=== PATIENT | female | born 1985 | race Caucasian/White ===

== ENCOUNTER → 2016-11-19 | Outpatient (CLI) | payer OTHER ==
[~2016-11-19] MED LIST: MOTRIN 600600 MG/TAB PO; PERCOCET 325 MG1 TA2 PO; PRENATAL1 TA2
== END ==
LOC: COL.RAD 10:05
DX: M54.2 Cervicalgia (principal)

== ENCOUNTER 2017-02-16 07:30 | Outpatient (RCR) | payer OTHER | END 2017-02-18 14:17 | disposition home or self-care (01) | LOC: WSPT 07:30 | DX: M54.2 Cervicalgia (principal); M54.10 Radiculopathy, site unspecified | CPT/HCPCS: G8981-GP; G8982-GP ==

== ENCOUNTER 2017-03-18 19:01 | Emergency (ER) | payer OTHER ==
[~2017-03-18] VITALS: Ht 170.2 cm; Wt 72.7 kg
[2017-03-18 19:10] VITALS: BP 137/86; TEMP 98.6
[2017-03-18 19:50] LABS: INFLUENZA A NEGATIVE; INFLUENZA B NEGATIVE
[2017-03-18 20:08] VITALS: PULSE 78
== END 2017-03-18 20:08 | disposition home or self-care (01) ==
LOC: COL.ER 19:01
PROVIDERS: Physician Assistant
DX: J11.1 Influenza due to unidentified influenza virus with other respiratory manifestations (principal)

== ENCOUNTER 2019-02-19 00:01 | Emergency (ER) | payer OTHER ==
[~2019-02-19] VITALS: Ht 170.2 cm; Wt 68.2 kg
[2019-02-19 00:50] LABS: BASO % 0.3 % (0.0-2.0); EOS % 0.3 % (0-4.0); GRAN # 5.7 (1.4-6.5); GRAN % 88.6 % (42.2-75.2); HEMATOCRIT 38.1 % (37.0-47.0); LYMPH # 0.4 (1.2-3.4); LYMPH % 5.7 % (20.0-51.0); MEAN CELL VOLUME 92 fl (80.0-100.0); MEAN CORPUSCULAR HEMOGLOBIN 31 pg (27.0-31.0); MEAN CORPUSCULAR HGB CONC 34 g/dl (33.0-37.0); MEAN PLATELET VOLUME 8.9 fl (7.4-10.4); MONO # 0.2 (0.1-0.6); MONO % 3.6 % (1.7-9.3); PLATELET COUNT 201 K/mm3 (130-400); RED BLOOD COUNT 4.16 M/mm3 (4.10-5.30); REDCELL DISTRIBUTION WIDTH-CV 12.1 % (11.5-14.5)
[2019-02-19 00:59] LABS: ALBUMIN 4.6 gm/dL (3.5-5.0); BILIRUBIN,TOTAL 0.4 mg/dL (0.0-1.0); CREATININE, serum 0.64 (0.52-1.25); TOTAL PROTEIN 7.9 gm/dL (6.4-8.2)
[2019-02-19 01:05] LABS: BAND 6 % (0-10); LYMPHOCYTE 6 % (20.0-51.0); NEUTROPHILS 86 % (42.0-75.2)
[2019-02-19 01:06] LABS: PLATELET ESTIMATE NORMAL (NORMAL)
[2019-02-19 01:40] LABS: COLLECTION METHOD CLEAN CATCH
[2019-02-19 01:45] LABS: MUCOUS Present /lpf; PH 5 (5-8); SQUAMOUS EPITHELIAL 0-2 /hpf; URINE APPEARANCE Clear; URINE BACTERIA None Seen /hpf; URINE BILIRUBIN Negative (NEGATIVE); URINE BLOOD 3+ (NEGATIVE); URINE COLOR Yellow; URINE GLUCOSE Negative (NEGATIVE); URINE KETONE Negative (NEGATIVE); URINE LEUKOCYTE ESTERASE Negative (NEGATIVE); URINE NITRATE Negative (NEGATIVE); URINE PROTEIN(semi-quant) Negative (NEGATIVE); URINE UROBILINOGEN Negative (NEGATIVE)
[2019-02-19 02:49] VITALS: BP 98/65; PULSE 99; TEMP 97.9
== END 2019-02-19 02:59 | disposition home or self-care (01) ==
LOC: COL.ER 00:01
PROVIDERS: Nurse Practitioner
DX: R10.31 Right lower quadrant pain (principal); Z88.8 Allergy status to other drugs, medicaments and biological substances
CPT/HCPCS: J1170; J1200; J1885; J2405; J2930; J7030; Q9967